=== PATIENT | male | born 1975 ===

== ENCOUNTER 2017-01-07 15:22 | Emergency (ER) | payer MEDICAID, OTHER ==
--- NOTE | 2017-01-07 16:18 | ED PDOC ---
HPI: Psych/Substance Abuse Time Seen by Provider: 01/07/17 15:44 Chief Complaint (Nursing): Psychiatric Evaluation Chief Complaint (Provider): Suicidal Ideation History Per: Patient History/Exam Limitations: no limitations Onset/Duration Of Symptoms: Hrs Current Symptoms Are (Timing): Still Present Suicide/Self Injury Attempted (Context): None Modifying Factor(s): None Associated Symptoms: Depression, Suicidal Thoughts Additional History Per: Law Enforcement Additional Complaint(s): Fito Kimball, a 41 year old male, who has a past medical history of asthma, anxiety, depression, psychiatric hospitalizations and is currently in police is brought in to the ED by law enforcement for suicidal ideations. As per patient while in custody he reported that he was depressed because of his sister's recent and that he is also suicidal. PCP: YONATAN Past Medical History Reviewed: Historical Data, Nursing Documentation, Vital Signs Vital Signs: Last Vital Signs Temp 98.5 F 01/07/17 15:28 Pulse 116 H 01/07/17 15:44 Resp 20 01/07/17 15:28 BP 153/84 H 01/07/17 15:44 Pulse Ox 98 01/07/17 15:28 - Medical History PMH: Anxiety, Asthma, Depression, HTN, Hyperlipidemia Denies: Diabetes, Hepatitis, HIV, Chronic Kidney Disease, Seizures, Sexually Transmitted Disease - Surgical History Surgical History: Hernia Repair - Family History Family History: States: No Known Family Hx - Social History Current smoker - smoking cessation education provided: Yes Ex-Smoker (has not smoked in the last 12 months): Yes Alcohol: < 2 Drinks/Day Drugs: Denies - Immunization History Hx Tetanus Toxoid Vaccination: No Hx Influenza Vaccination: No Hx Pneumococcal Vaccination: No - Home Medications Home Medications: Ambulatory Orders Medication Instructions Recorded Alprazolam [Xanax] 3 mg PO PRN PRN 09/15/12 Escitalopram Oxalate [Lexapro] 10 mg PO BID 09/15/12 Divalproex [Depakote Sprinkles] 125 mg PO TID 04/04/15 Naproxen 250 mg PO BID PRN #10 tablet 12/30/16 - Allergies Allergies/Adverse Reactions: Allergies Allergy/AdvReac Type Severity Reaction Status Date / Time iodine Allergy ANAPHYLAXIS Verified 01/07/17 15:28 shellfish derived Allergy ANAPHYLAXIS Verified 01/07/17 15:28 Review of Systems ROS Statement: Except As Marked, All Systems Reviewed And Found Negative (and as per HPI) Psych: Positive for: Depression, Suicidal ideation Physical Exam - Reviewed Nursing Documentation Reviewed: Yes Vital Signs Reviewed: Yes - Physical Exam Appears: Positive for: Non-toxic, No Acute Distress Head Exam: Positive for: ATRAUMATIC, NORMOCEPHALIC Skin: Positive for: Warm, Dry Eye Exam: Positive for: EOMI, PERRL, Conjunctival injection ENT: Positive for: Pharynx Is (clear) Neck: Positive for: Painless ROM, Supple Cardiovascular/Chest: Positive for: Regular Rate, Rhythm, Chest Non Tender. Negative for: Murmur Respiratory: Positive for: Normal Breath Sounds. Negative for: Wheezing Gastrointestinal/Abdominal: Positive for: Soft. Negative for: Tenderness Back: Positive for: Normal Inspection. Negative for: Decreased ROM Extremity: Positive for: Normal ROM. Negative for: Deformity Lymphatic: Negative for: Adenopathy Neurologic/Psych: Positive for: Alert. Negative for: Motor/Sensory Deficits - ECG O2 Sat by Pulse Oximetry: 98 (RA) Pulse Ox Interpretation: Normal Medical Decision Making Medical Decision Makin Initial Impression 41 year old male presenting with suicidal ideation On arrival PD requesting assistance for restraint due to pt trying to place his head through stretcher bars. Initial Plan: * Restraint: Violent or harm to self/other * 1:1 Observation * Reevaluation Evaluated by GLENDA forde d/w psych oncall. Pt to be dc to police custody. stable for any further psychiatric eval via corrections facility. Scribe Attestation Documented by Jacque Hernandez, acting as a scribe for Eleni Goodwin MD. Provider Scribe Attestation All medical record entries made by the Scribe were at my direction and personally dictated by me. I have reviewed the chart and agree that the record accurately reflects my personal performance of the history, physical exam, medical decision making, and the department course for this patient. I have also personally directed, reviewed, and agree with the discharge instructions and disposition. Disposition - Clinical Impression Clinical Impression: Adjustment disorder, Cocaine abuse - Disposition Referrals: [facility] [Outside] Disposition: Discharged/Transfer to Law Enforcement Disposition Time: 17:26 Condition: STABLE Additional Instructions: MEDICALLY AND PSYCHIATRICALLY STABLE FOR INCARCERATION Instructions: Cocaine Abuse (ED), Mood Disorders (ED)
[2017-01-07 17:38] VITALS: BP 157/98; PULSE 105; RESP 16; TEMP 98
[2017-01-07 17:45] VITALS: O2SAT 98
--- NOTE | 2017-01-07 18:18 | RAD ---
HISTORY: crisis eval COMPARISON: No prior. FINDINGS: LUNGS: No active pulmonary disease. PLEURA: No significant pleural effusion identified, no pneumothorax apparent. CARDIOVASCULAR: Normal. OSSEOUS STRUCTURES: No significant abnormalities. VISUALIZED UPPER ABDOMEN: Normal. OTHER FINDINGS: None. IMPRESSION: No active disease.
== END 2017-01-07 18:25 ==
LOC: H.ER 15:22
DX: F14.10 Cocaine abuse, uncomplicated (principal); F32.9 Major depressive disorder, single episode, unspecified; E78.5 Hyperlipidemia, unspecified; F17.200 Nicotine dependence, unspecified, uncomplicated; F43.22 Adjustment disorder with anxiety; I10 Essential (primary) hypertension; J45.909 Unspecified asthma, uncomplicated; R45.851 Suicidal ideations

== ENCOUNTER 2017-03-25 10:35 | Emergency (ER) | payer OTHER ==
[2017-03-25 11:16] VITALS: BP 134/91; PULSE 98; RESP 19; TEMP 97.7; O2SAT 100
--- NOTE | 2017-03-25 11:22 | ED PDOC ---
HPI: General Adult Time Seen by Provider: 03/25/17 10:51 Chief Complaint (Nursing): Alcohol Ingestion Chief Complaint (Provider): Denies complaint - Brought in by [facility] History Per: Patient, Other History/Exam Limitations: no limitations Additional Complaint(s): 41 yo male with no medical problems brought in by [facility] for blood drawl. Pt denies complaints at this time. Warrant obtained for blood draw. Past Medical History Reviewed: Historical Data, Nursing Documentation, Vital Signs Vital Signs: Last Vital Signs Temp 97.7 F 03/25/17 11:10 Pulse 98 H 03/25/17 11:10 Resp 19 03/25/17 11:10 BP 134/91 H 03/25/17 11:10 Pulse Ox 100 03/25/17 11:22 - Medical History PMH: Anxiety, Asthma, Depression, HTN, Hyperlipidemia Denies: Diabetes, Hepatitis, HIV, Chronic Kidney Disease, Seizures, Sexually Transmitted Disease Other PMH: Pt does not take medication for HTN currently - Surgical History Surgical History: Hernia Repair - Family History Family History: States: Unknown Family Hx - Immunization History Hx Tetanus Toxoid Vaccination: No Hx Influenza Vaccination: No Hx Pneumococcal Vaccination: No - Home Medications Home Medications: Ambulatory Orders Medication Instructions Recorded Alprazolam [Xanax] 3 mg PO PRN PRN 09/15/12 Escitalopram Oxalate [Lexapro] 10 mg PO BID 09/15/12 Divalproex [Depakote Sprinkles] 125 mg PO TID 04/04/15 Naproxen 250 mg PO BID PRN #10 tablet 12/30/16 - Allergies Allergies/Adverse Reactions: Allergies Allergy/AdvReac Type Severity Reaction Status Date / Time iodine Allergy ANAPHYLAXIS Verified 01/07/17 15:28 shellfish derived Allergy ANAPHYLAXIS Verified 01/07/17 15:28 Review of Systems ROS Statement: Except As Marked, All Systems Reviewed And Found Negative Constitutional: Negative for: Fever, Chills Cardiovascular: Negative for: Chest Pain, Palpitations Respiratory: Negative for: Cough Gastrointestinal: Negative for: Abdominal Pain Physical Exam - Reviewed Nursing Documentation Reviewed: Yes Vital Signs Reviewed: Yes - Physical Exam Appears: Positive for: Well, Non-toxic, No Acute Distress Head Exam: Positive for: ATRAUMATIC, NORMAL INSPECTION, NORMOCEPHALIC Skin: Positive for: Normal Color, Warm, DRY Eye Exam: Positive for: EOMI, Normal appearance, PERRL ENT: Positive for: Normal ENT Inspection Neck: Positive for: Normal, Painless ROM Cardiovascular/Chest: Positive for: Regular Rate, Rhythm Respiratory: Positive for: CNT, Normal Breath Sounds Gastrointestinal/Abdominal: Positive for: Normal Exam, Bowel Sounds, Soft Back: Positive for: Normal Inspection Extremity: Positive for: Normal ROM Neurologic/Psych: Positive for: Alert, Oriented - ECG O2 Sat by Pulse Oximetry: 100 Medical Decision Making Medical Decision Making: Blood work drawn as per [employer] [employer] protocol by scientific writer at 1101 from right AC. Disposition - Clinical Impression Clinical Impression: Normal exam - Disposition Disposition: Routine/Home Disposition Time: 11:26 Condition: STABLE Instructions: Your Normal Heart Forms: [employer] (Swedish)
== END 2017-03-25 11:30 | disposition home or self-care (01) ==
LOC: H.ER 10:35
DX: Z00.00 Encounter for general adult medical examination without abnormal findings (principal); Z02.89 Encounter for other administrative examinations